=== PATIENT | female | born 1955 | race African-American/Black ===

== ENCOUNTER 2018-04-14 00:40 | Emergency (ER) | payer BC ==
[~2018-04-14] VITALS: Ht 167.6 cm; Wt 100.0 kg
[2018-04-14] MEDS ORDERED: KETOROLAC 60MG/2ML VIAL IM ONE (01:45)
[2018-04-14 02:13] VITALS: BP 166/89
== END 2018-04-14 02:14 | disposition home or self-care (01) ==
LOC: ER 01:45
DX: S80.02XA Contusion of left knee, initial encounter (principal); I10 Essential (primary) hypertension; Z90.49 Acquired absence of other specified parts of digestive tract; W18.09XA Striking against other object with subsequent fall, initial encounter; Y93.89 Activity, other specified; Y92.89 Other specified places as the place of occurrence of the external cause
CPT/HCPCS: 73562; 96372; 99284; J1885